=== PATIENT | male | born 1955 | race Caucasian/White ===

== ENCOUNTER 2024-08-24 14:45 | Outpatient (CLI) | payer MEDICARE | END 2024-08-24 14:46 | disposition home or self-care (01) | LOC: SCSRAD 14:45 | PROVIDERS: ATTEND Family Medicine Sports Medicine | DX: M25.512 Pain in left shoulder (principal) ==

== ENCOUNTER 2025-06-24 11:13 | Outpatient (CLI) | payer MEDICARE, OTHER | END 2025-06-24 11:14 | disposition home or self-care (01) | LOC: SCSRAD 11:13 | PROVIDERS: ATTEND Family Medicine Sports Medicine | DX: M25.511 Pain in right shoulder (principal); M19.011 Primary osteoarthritis, right shoulder ==